=== PATIENT | male | born 1960 | race Caucasian/White ===

== ENCOUNTER 2024-09-18 05:36 | Emergency (ER) | payer OTHER ==
[~2024-09-18] VITALS: Ht 180.3 cm; Wt 90.7 kg
[2024-09-18] MEDS: IV NORMAL SALINE 500 ML BAG IV ONE (05:45)
[2024-09-18] MEDS ORDERED: BENZ-13 (05:52)
[2024-09-18] MEDS ORDERED: AMOX250C (05:52)
[2024-09-18 05:54] LABS: BASOPHILS % (AUTO) 0.6 % (0.0-2.0); EOSINOPHILS # (AUTO) 0.1 K/uL (0.0-0.7); EOSINOPHILS % (AUTO) 1.7 % (0.0-7.0); HEMATOCRIT 38.8 % (36.7-47.1); HEMOGLOBIN 13.7 g/dL (12.5-16.3); LYMPHOCYTES # (AUTO) 3.2 K/uL (0.8-4.8); LYMPHOCYTES % (AUTO) 50.9 % (20.5-51.5); MEAN CORPUSCULAR HEMOGLOBIN 30.9 uug (23.8-33.4); MEAN CORPUSCULAR HGB CONC 35 g/dL (32.5-36.3); MEAN CORPUSCULAR VOLUME 87.4 fL (73.0-96.2); MONOCYTES # (AUTO) 0.7 K/uL (0.1-1.30); MONOCYTES % (AUTO) 11.2 % (0.0-11.0); NEUTROPHILS # (AUTO) 2.2 K/uL (1.8-8.9); NEUTROPHILS % (AUTO) 35.6 % (38.5-71.5); PLATELET COUNT (AUTO) 147 K/uL (152-348); RED BLOOD CELL COUNT(AUTO) 4.44 MIL/uL (4.06-5.63); RED CELL DISTRIBUTION WIDTH 14.5 % (12.1-16.2); WHITE BLOOD COUNT (AUTO) 6.2 K/uL (3.6-10.2)
[2024-09-18] MEDS ORDERED: ONDANSETRON 4 MG/2 ML VIAL ONE (06:02)
[2024-09-18] MEDS ORDERED: MECLIZINE HCL 25 MG TABLET ONE (06:02)
[2024-09-18] MEDS: ONDANSETRON 4 MG/2 ML VIAL IV ONE (06:03)
[2024-09-18] MEDS: MECLIZINE HCL 25 MG TABLET PO ONE (06:03)
[2024-09-18 06:12] LABS: ALBUMIN 3.6 g/dL (3.4-5.0); BILIRUBIN,TOTAL 0.5 mg/dL (0.2-1.0); CALCIUM 9.1 mg/dL (8.5-10.1); POTASSIUM 2.9 mmol/L (3.5-5.1); TOTAL PROTEIN, SERUM 7.5 g/dL (6.4-8.2)
[2024-09-18 06:17] LABS: C-REACTIVE PROTEIN 1.87 mg/dL (0.00-0.30)
[2024-09-18] MEDS ORDERED: POTASSIUM CHLORIDE 100 ML ONE (06:29)
[2024-09-18] MEDS ORDERED: POTASSIUM CHLORIDE 20 MEQ TAB.PRT.SR ONE (06:29)
[2024-09-18] MEDS: POTASSIUM CHLORIDE 50 ML IV SCH (06:30)
[2024-09-18] MEDS: POTASSIUM CHLORIDE 20 MEQ TAB.PRT.SR PO ONE (07:02)
[2024-09-18] MEDS ORDERED: DILTIAZEM HCL SR 60 MG CAP.SR.12H PO ONE (07:43)
[2024-09-18] MEDS ORDERED: LISINOPRIL 10 MG TABLET ONE (07:43)
[2024-09-18] MEDS: DILTIAZEM HCL SR 60 MG CAP.SR.12H PO ONE (07:46)
[2024-09-18] MEDS: LISINOPRIL 10 MG TABLET PO ONE (07:47)
[2024-09-18] MEDS ORDERED: HYDROCHLOROTHIAZIDE 12.5 MG CAPSULE ONE (07:49)
[2024-09-18] MEDS: HYDROCHLOROTHIAZIDE 25 MG TABLET PO ONE (08:01)
[2024-09-18] MEDS ORDERED: METOCLOPRAMIDE HCL 10 MG/2 ML VIAL ONE (08:43)
[2024-09-18] MEDS: METOCLOPRAMIDE HCL 10 MG/2 ML VIAL IV ONE (08:46)
[2024-09-18] MEDS ORDERED: DILT120C51 PO (08:53)
[2024-09-18] MEDS ORDERED: ROSU20TA32 PO (08:53)
[2024-09-18] MEDS ORDERED: BENZ-38 PO (08:53)
[2024-09-18] MEDS ORDERED: SERT-438 PO (08:53)
[2024-09-18] MEDS ORDERED: LISI1TAB32 PO (08:53)
[2024-09-18] MEDS ORDERED: POTASSIUM BICARBONATE/CIT AC 25 MEQ TABLET.EFF ONE (09:10)
[2024-09-18] MEDS ORDERED: DEXAMETHASONE SOD PHOSPHATE 4 MG INJ ONE (09:10)
[2024-09-18] MEDS: DEXAMETHASONE SOD PHOSPHATE 4 MG INJ IV ONE (09:17)
[2024-09-18] MEDS: POTASSIUM BICARBONATE/CIT AC 25 MEQ TABLET.EFF PO ONE (09:17)
[2024-09-18] MEDS ORDERED: MECL-159 PO (10:18)
[2024-09-18] MEDS ORDERED: ONDA4TAB5 PO (10:18)
[2024-09-18] MEDS ORDERED: ACET15SO5 EACH EAR (10:18)
[2024-09-18 10:54] VITALS: BP 185/99; TEMP 98.3; O2SAT 100
== END 2024-09-18 10:55 | disposition home or self-care (01) ==
LOC: ER 05:41
DX: R42 Dizziness and giddiness (principal); R11.2 Nausea with vomiting, unspecified; E87.6 Hypokalemia; I10 Essential (primary) hypertension; R05.9 Cough, unspecified; R06.02 Shortness of breath; R51.9 Headache, unspecified; Z20.822 Contact with and (suspected) exposure to COVID-19
CPT/HCPCS: 99285; 96365; 96375; 70450; 71045; 87426; 87804 ×2; 80053; 83735; 85025; 84145; 85610; 86140; 36415; 69210; 93005; 83605; 80048; J1100; J2765; J2405; J3480; J7040; A4606; A4663; J8597